=== PATIENT | female | born 2000 | race Caucasian/White ===

== ENCOUNTER → 2021-08-26 | Outpatient (CLI) | payer MEDICARE, OTHER ==
--- NOTE | 2021-08-26 18:27 | Diagnostic Imaging Report ---
INDICATION: , anatomic survey, routine care. TECHNIQUE: Multiple real-time grayscale images were obtained over the gravid uterus. COMPARISON: None. FINDINGS: The cervix measures about 4.6 cm in length. The placenta is posterior with no evidence of previa. The amniotic fluid index measures 11.3 cm, and the heart rate measures 158 BPM. Position is transverse with head to maternal left. The kidneys are seen. The cord insertion is seen. The bladder is seen. Two umbilical arteries are demonstrated consistent with a three-vessel cord. The stomach is seen. A four-chamber heart is seen. A cord insertion is seen. The lateral ventricles are seen. The cerebellum and cisterna magna are seen. The upper and lower spine are seen. The profile is seen. Biometrical measurements are as follows: Biparietal 5.62 cm, age 23 weeks 2 days. Head circumference 23.00 cm, age 25 weeks 1 days. Abdominal circumference 20.59 cm, age 25 weeks 2 days. Femur length 4.63 cm, age 25 weeks 3 days. Sonographic estimate age: 24 weeks 6 days. Sonographic estimated date of delivery: 12/10/2021. Estimated Weight: 773 gm (+/- 113 gm). LMP percentile: 79%. heart rate: 153 beats per minute. number: 1 of 1. IMPRESSION: 1. Single live intrauterine gestation measuring at 24 weeks and 6 days, which is within range of the clinical dates. 2. No abnormality is seen on anatomic survey. 3. Transverse presentation. Dictated by: Dictated on workstation # [id number]
== END ==
LOC: RAD 15:31
PROVIDERS: ATTEND Nurse Practitioner Women's Health
DX: Z34.02 Encounter for supervision of normal first pregnancy, second trimester (principal); Z3A.24 24 weeks gestation of pregnancy
CPT/HCPCS: 76805

== ENCOUNTER 2021-12-08 14:13 | Inpatient (IN) | payer MEDICARE, MEDICAID ==
[2021-12-08] VITALS (26 sets, daily range): BP systolic 95–144; BP diastolic 52–93
[~2021-12-08] VITALS: Ht 160 cm; Wt 77.5 kg
[2021-12-08] MEDS ORDERED: PREN1TAB19 PO (14:48)
[2021-12-08] MEDS ORDERED: CETI10CA PO (14:48)
[2021-12-08] MEDS ORDERED: LIDOCAINE/EPI 2% 1:200,00 (XYLOCAINE) 10 ML VIAL INJ PRN (15:00)
[2021-12-08 15:18] LABS: BILIRUBIN,URINE NEGATIVE (NEGATIVE); CLARITY,URINE CLEAR; COLOR,URINE YELLOW; GLUCOSE, URINE (UA) NEGATIVE (NEGATIVE); KETONES,URINE NEGATIVE (NEGATIVE); LEUKOCYTE ESTERASE ,URINE 1+ (NEGATIVE); NITRITE,URINE NEGATIVE (NEGATIVE); PROTEIN,URINE NEGATIVE (NEGATIVE)
--- NOTE | 2021-12-08 15:21 | History & Physical-OB ---
OB - Chief Complaint & HPI Date/Time Date of Admission: Date of Admission: Dec 08, 2021 at 2:13 pm Date seen by a Provider: Dec 08, 2021 Time Seen by a Provider: 13:30 Chief Complaint/History OB-Reason for Admission/Chief: Onset of Labor Hx : 3 Hx Para: 1 Expected Date of Delivery: Dec 14, 2021 Gestational Age in Weeks: 39 Gestational Age in Days: 1 Admission Nurse Assessment Rev: Yes History of Labs O pos GBS neg Allergies and Home Medications Allergies Coded Allergies: haloperidol (Verified Allergy, Severe, throat swelling, 12/08/21) lurasidone (Verified Allergy, Mild, lightheaded, 12/08/21) Patient Home Medication List Home Medication List Reviewed: Yes Cetirizine HCl (Zyrtec) 10 Mg Capsule, 10 MG PO DAILY, (Reported) Entered as Reported by: ALY AYON on 12/08/211447 Last Action: New Order Vit/Iron Fumarate/FA ( Vitamins Tablet) 28 Mg Iron-800 Mcg Tablet, 1 EACH PO DAILY, (Reported) Entered as Reported by: ALY AYON on 12/08/211447 Last Action: New Order OB - History Hx of Present Care: Yes (limited PNC due to travel inabilities at home,(no ride)) Obstetrical Complications: None Medical Complications: None Patient Past Medical History n/a OB - Admission Exam Physical Exam HEENT: NCAT Heart: Rhythm Normal Lungs: Clear Abdomen: Gravid Extremities: Normal Reflexes: Normal Cervical Dilatation: 4cm Effacement: 75% Station: -1 Membranes: Intact Heart Rate: 130's Accelerations: Accelerations Present Decelerations: No Decelerations Short Term Variability: Present Chemical Research Engineer Variability: Average (6-25) Contractions on Admission: 6-10 Minutes Apart Intensity: Moderate Labs Laboratory Tests Test 12/08/21 14:45 Range/Units OB - Assessment/Plan/Diagnosis Assessment Assessment: active labor Admission Dx 21 yo @ 39 weeks Advanced cervical dilatation GBS neg Admission Status: Inpatient Order (span 2 midnights) Reason for Inpatient Admission: Active labor at 39 weeks Plan Plan: Expectant Management (AROM) ALAN KIRBY DO Dec 08, 2021 3:21 pm
[2021-12-08 15:25] LABS: BACTERIA,URINE MODERATE /HPF; SQUAMOUS EPITHELIAL CELL,UR 0-2 /HPF; WBC,URINE 0-2 /HPF
[2021-12-08 15:31] LABS: AMPHETAMINE SCREEN, URINE NEGATIVE (NEGATIVE); BARBITURATE SCREEN URINE NEGATIVE (NEGATIVE); BENZODIAZEPINES SCREEN URINE NEGATIVE (NEGATIVE); CANNABINOID SCREEN, URINE NEGATIVE (NEGATIVE); COCAINE SCREEN URINE NEGATIVE (NEGATIVE); METHADONE STAT NEGATIVE (NEGATIVE); OPIATE SCREEN URINE NEGATIVE (NEGATIVE); OXYCODONE STAT NEGATIVE (NEGATIVE); PROPOXYPHENE STAT NEGATIVE (NEGATIVE); TRICYCLIC ANTIDEPRESSANTS SCRE NEGATIVE (NEGATIVE)
[2021-12-08 15:52] LABS: BASOPHILS # (AUTO) 0.1 10^3/uL (0.0-0.1); BASOPHILS % (AUTO) 1 % (0-10); EOSINOPHILS # (AUTO) 0.2 10^3/uL (0.0-0.3); EOSINOPHILS % (AUTO) 1 % (0-10); HEMATOCRIT 43 % (35-52); HEMOGLOBIN 14.6 g/dL (11.5-16.0); LYMPHOCYTES # (AUTO) 2.4 10^3/uL (1.0-4.0); LYMPHOCYTES % (AUTO) 16 % (12-44); MEAN CORPUSCULAR HEMOGLOBIN 30 pg (25-34); MEAN CORPUSCULAR HGB CONC 34 g/dL (32-36); MEAN CORPUSCULAR VOLUME 87 fL (80-99); MEAN PLATELET VOLUME 9.2 fL (9.0-12.2); MONOCYTES % (AUTO) 7 % (0-12); NEUTROPHILS % (AUTO) 74 % (42-75); PLATELET COUNT 280 10^3/uL (130-400); WHITE BLOOD COUNT 14.9 10^3/uL (4.3-11.0)
[2021-12-08] MEDS: D5 LR IV SOLUTION 1,000 ML IV SCH ×2 (16:04→22:39)
[2021-12-08 16:17] LABS: EOSINOPHILS % (MANUAL) 1 %; LYMPHOCYTES % (MANUAL) 11 %; MONOCYTES % (MANUAL) 15 %; NEUTROPHILS % (MANUAL) 73 %; RBC MORPH NORMAL
[2021-12-08] MEDS ORDERED: fentaNYL 2 mcg/ml BUPIVA 0.125 100 ML ONE (16:59)
[2021-12-08] MEDS ORDERED: BUPIVACAINE 0.25% 30 ML (SENSORCAINE) VIAL ONE (18:11)
[2021-12-08] MEDS ORDERED: BUPIVACAINE 0.5% 30 ML (SENSORCAINE) VIAL ONE (18:11)
[2021-12-08] MEDS ORDERED: fentaNYL INJ 100 MCG/2 ML AMP ONE (18:11)
[2021-12-08] MEDS ORDERED: LACTATED RINGERS 1,000 ML IV ONE ×2 (18:45)
[2021-12-08] MEDS ORDERED: ONDANSETRON 4 MG/2 ML (SDV) Z0FRAN IV PRN (18:45)
[2021-12-08] MEDS ORDERED: NALOXONE 0.4 MG/ML 1 ML (NARCAN) VIAL IV PRN (18:45)
[2021-12-08] MEDS ORDERED: fentaNYL INJ 100 MCG/2 ML AMP INJ ONE (18:45)
[2021-12-08] MEDS ORDERED: EPIDURAL (fentaNYL 2 MCG/ML BUPIVA 0.125%)100 ML BAG EPI PRN (18:45)
[2021-12-08] MEDS ORDERED: OXYTOCIN PRE-MIX DRIP 500 ML IV SCH (19:30)
[2021-12-08] MEDS ORDERED: OXYTOCIN PRE-MIX DRIP 500 ML IV ONE (19:33)
[2021-12-08] MEDS ORDERED: CALCIUM CARBONATE 500 MG (TUMS) TAB.CHEW ONE (20:39)
[2021-12-08] MEDS ORDERED: CALCIUM CARBONATE 500 MG (TUMS) TAB.CHEW PO ONE (20:45)
[2021-12-08] MEDS ORDERED: ACETAMINOPHEN 500 MG TAB (TYLENOL) PO ONE (23:15)
[2021-12-09] VITALS (18 sets, daily range): BP systolic 96–140; BP diastolic 50–94
--- NOTE | 2021-12-09 01:09 | OB Labor & Delivery Record ---
L&D History Date of Service Date of Service: Dec 09, 2021 History Expected Date of Delivery: Dec 14, 2021 Gestational Age in Weeks: 39 Hx : 3 Hx Para: 1 Complications Events: Routine care (limited PNC) Operative Indications (Cesarea: N/A-Vaginal Delivery Intrapartal Events: None L&D Stage1 Stage One Onset of Labor - Date: Dec 09, 2021 Monitors and Tracing Monitor Mode: External Heart Rate: 140 Monitor Accelerations: Uniform Monitor Decelerations: None Station: 0 Finishing Supervisor Plastic Sheets Variability: Average (6-10) Short Term Variability: Present Presentation: Vertex Vital Signs VS - Last 72 Hours, by Label 12/08/21 12/08/21 12/08/21 12/08/21 14:15 16:40 17:20 17:50 Temp 38.0 37.1 37.9 37.6 Pulse 111 111 91 Resp 20 18 18 B/P (MAP) 104/77 (86) 110/62 (78) Pulse Ox 97 99 97 O2 Delivery Room Air Room Air Room Air 12/08/21 12/08/21 12/08/21 12/08/21 18:15 18:21 18:24 18:25 Pulse 138 133 120 104 Resp 24 24 24 20 B/P (MAP) 144/93 (110) 144/93 (110) 137/65 (89) 137/65 (89) Pulse Ox 99 100 100 O2 Delivery Room Air 12/08/21 12/08/21 12/08/21 12/08/21 18:28 19:15 19:20 19:30 Temp 37.0 Pulse 87 79 72 Resp 20 18 18 B/P (MAP) 129/61 (83) 141/58 (85) 113/70 (84) Pulse Ox 100 98 100 O2 Delivery Room Air Room Air Room Air 12/08/21 12/08/21 12/08/21 12/08/21 20:15 20:26 20:41 20:57 Pulse 94 97 106 88 Resp 18 18 18 18 B/P (MAP) 119/67 (84) 131/78 (95) 110/62 (78) 112/71 (85) 12/08/21 12/08/21 12/08/21 12/08/21 21:11 21:26 21:43 21:57 Pulse 88 127 84 76 Resp 18 18 18 18 B/P (MAP) 107/65 (79) 97/52 (67) 104/55 (71) 106/52 (70) 12/08/21 12/08/21 12/08/21 22:12 22:27 22:41 Temp 36.9 Pulse 85 95 113 Resp 18 18 18 B/P (MAP) 110/58 (75) 101/56 (71) 117/64 (81) Rupture of Membranes Spontaneous Ruture of Membrane: No Amniotic Membrane Rupture Time: 1637 Amniotic Membrane Fluid Desc.: Clear Vaginal Bleeding Description: Normal Show Induction/Anesthesia Epidural Cath Placement - Time: 1824 Progress/Notes Patient presented to office in early labor 4 cm dilatation. Sent to hospital where AROM performed. Epidural placed at patient request and pitocin augmentation started. She progressed rapidly to complete and + 2 L&D Stage2 Stage Two Stage II Date: Dec 09, 2021 Monitors and Tracing Monitor Mode: External Heart Rate: 140 Monitor Accelerations: Uniform Monitor Decelerations: Variable Fdc Variability: Average (6-10) Short Term Variability: Present Position: Right Occiput Anterior Presentation: Vertex Cord Descript/Complications Cord Vessel Description: 3 Vessels Delivery Type Delivery Method: Spontaneous Vaginal Anterior Shoulder: Left Episiotomy/Perineal Laceration Laceraction(s)/Extensions: No Condition of Delivery 1 minute Comment: 8 5 minute Comment: 9 Notes Live female weight 8lbs even Condition of Condition of : Living Exam: No Observed Abnormalities Resuscitation Resuscitation: N/A - Spontaneous Resp L&D Stage3 Stage Three Stage III Date: Dec 09, 2021 Pictocin Pitocin Administration mu/min: 8 Pitocin ml/hr: 8 Pitocin Administration Comment: 30 mu wide open after delivery of placenta Placenta Delivery Placenta Delivery: Spontaneous Delivery Summary Summary Estimated blood loss (mL): 300 Attending at delivery: Alan Kirby DO Condition of Delivery Examined: Cervix Examined, Uterus Explored Post Hemorrhage: No Condition of Mother stable Condition of (s) stable ALAN KIRBY DO Dec 09, 2021 01:08
[2021-12-09] MEDS ORDERED: NALOXONE 0.4 MG/ML 1 ML (NARCAN) VIAL IV PRN (01:15)
[2021-12-09] MEDS ORDERED: WITCH HAZEL(TUCKS) 40 EA JAR TOP PRN (01:15)
[2021-12-09] MEDS ORDERED: TETANUS,DIPTH,PERTUSS P/F (BOOSTRIX) 0.5 ML VIAL IM ONE (01:15)
[2021-12-09] MEDS ORDERED: BENZOCAINE/MENTHOL (DERMOPLAST) 56 ML CAN TP PRN (01:15)
[2021-12-09] MEDS ORDERED: DIBUCAINE 1% OINTMENT 30 GM TUBE TOP PRN (01:15)
[2021-12-09] MEDS ORDERED: MEASLES,MUMPS,RUBELLA 1 EA INJ SQ ONE (01:15)
[2021-12-09] MEDS: OXYTOCIN PRE-MIX DRIP 500 ML IV SCH ×2 (01:29→19:38)
[2021-12-09] MEDS ORDERED: IBUPROFEN 600 MG (MOTRIN) TAB PO ONE (03:01)
[2021-12-09] MEDS ORDERED: IBUPROFEN 600 MG (MOTRIN) TAB PO SCH (06:00)
[2021-12-09] MEDS: IBUPROFEN 600 MG (MOTRIN) TAB PO SCH ×3 (08:18→20:55)
[2021-12-09] MEDS: FERROUS SULF 325 MG (IRON) TAB PO SCH (08:18)
[2021-12-09] MEDS: PRENATAL VITAMIN 1 EA TAB PO SCH (08:18)
[2021-12-09] MEDS: HYDROcodone/APAP 5 MG/325 MG (LORTAB) TAB PO PRN ×3 (08:19→18:42)
[2021-12-09] MEDS: DOCUSATE SODIUM 100 MG (COLACE) CAP PO SCH ×2 (08:19→20:55)
--- NOTE | 2021-12-09 09:06 | Discharge Inst-Women's Service ---
Discharge Inst-Women's Serv Depart Medication/Instructions New, Converted or Re-Newed RX: Transmitted to Pharmacy Final Diagnosis PPD 1 NVD Problems Reviewed?: Yes Consults/Follow Up Additional Follow Up: Yes Orders/Referrals Dr. Kirby in 6 weeks Activity Activity: Activity as Tolerated Driving Instructions: No Driving for 1 Week NO SMOKING: NO SMOKING Nothing Inside Vagina: No Douching, No [place], No Tampons Diet Discharge Diet: No Restrictions Symptoms to Report to : Bleeding Excessive, Pain Increased, Fever Over 101 Degrees F, Vaginal Bleeding Increase, Questions/Concerns For Any Problems or Questions: Contact Your Physician ALAN KIRBY DO Dec 09, 2021 09:06
[2021-12-09] MEDS ORDERED: DOCU100C37 PO (09:09)
[2021-12-09] MEDS ORDERED: ACHD5005 PO (09:09)
[2021-12-09] MEDS ORDERED: FERR325T24 PO (09:09)
[2021-12-09] MEDS ORDERED: IBUP-844 PO (09:09)
--- NOTE | 2021-12-09 09:38 | Anesthesia-Regional Post-Op ---
Regional Patient Condition Mental Status: Alert, Oriented x3 Circulation: Same as Pre-Op Headache: Absent Sensation: Full Recovery Motor Block: Absent Post Op Complications Complications None Follow Up Care/Instructions Patient Instructions None needed. Anesthesia/Patient Condition Patient is doing well, no complaints, stable vital signs, no apparent adverse anesthesia problems. No complications reported per nursing. FELIX GARCIA CRNA Dec 09, 2021 09:38
[2021-12-09] MEDS: CATHETER FLUSH 10 ML SYR IV SCH ×5 (19:37→19:40)
[2021-12-09] MEDS: D5 LR IV SOLUTION 1,000 ML IV SCH ×2 (19:37→19:40)
[2021-12-10 00:45] VITALS: BP 95/55
[2021-12-10] MEDS: HYDROcodone/APAP 5 MG/325 MG (LORTAB) TAB PO PRN ×2 (00:46→10:49)
[2021-12-10 03:48] VITALS: BP 92/52
[2021-12-10] MEDS: IBUPROFEN 600 MG (MOTRIN) TAB PO SCH ×2 (03:48→09:32)
[2021-12-10 06:26] LABS: BASOPHILS # (AUTO) 0.1 10^3/uL (0.0-0.1); BASOPHILS % (AUTO) 1 % (0-10); EOSINOPHILS # (AUTO) 0.4 10^3/uL (0.0-0.3); EOSINOPHILS % (AUTO) 3 % (0-10); HEMATOCRIT 34 % (35-52); HEMOGLOBIN 11.3 g/dL (11.5-16.0); LYMPHOCYTES # (AUTO) 3.4 10^3/uL (1.0-4.0); LYMPHOCYTES % (AUTO) 23 % (12-44); MEAN CORPUSCULAR HEMOGLOBIN 30 pg (25-34); MEAN CORPUSCULAR HGB CONC 33 g/dL (32-36); MEAN CORPUSCULAR VOLUME 89 fL (80-99); MEAN PLATELET VOLUME 9.4 fL (9.0-12.2); MONOCYTES # (AUTO) 1.2 10^3/uL (0.0-1.0); MONOCYTES % (AUTO) 8 % (0-12); NEUTROPHILS # (AUTO) 9.7 10^3/uL (1.8-7.8); NEUTROPHILS % (AUTO) 65 % (42-75); PLATELET COUNT 234 10^3/uL (130-400)
[2021-12-10] MEDS: CATHETER FLUSH 10 ML SYR IV SCH ×2 (07:00)
[2021-12-10] MEDS: D5 LR IV SOLUTION 1,000 ML IV SCH (07:00)
[2021-12-10] MEDS ORDERED: SERT50TA2 PO (08:45)
[2021-12-10] MEDS ORDERED: SERTRALINE 50 MG (ZOLOFT) TABLET PO ONE (08:45)
--- NOTE | 2021-12-10 08:45 | Postpartum Progress Note ---
Note Note Day # 1 Subjective: Patient is without complaints. Ambulating, voiding. Tolerating a regular diet without nausea or vomiting. Normal lochia. Pain is well controlled with oral pain medications. Objective: Physical Exam: General - Alert and oriented, no apparent distress Abdomen - Soft, appropriately tender to palpation, non-distended, fundus firm at umbilicus Extremities - no edema, negative Merari's bilaterally Assessment: PPD 1 NVD Acute blood loss anemia PP Depression Plan: Routine care. Encourage breast feeding. Encourage ambulation. Start on Zoloft Ferrous sulfate supplementation. Plan for discharge today Vitals - Labs Vital Signs - I&O Vital Signs Date Time Temp Pulse Resp B/P (MAP) Pulse Ox O2 Delivery O2 Flow Rate FiO2 12/10/21 03:48 37.0 76 18 92/52 (65) 96 Room Air 12/10/21 00:45 36.8 81 18 95/55 (68) 97 Room Air 12/09/21 20:55 36.0 80 18 100/53 (69) 98 Room Air 12/09/21 15:33 36.0 79 18 118/57 (77) 97 Room Air 12/09/21 12:45 36.2 78 18 102/69 (80) 98 Room Air I & O 12/10/21 07:00 Intake Total 2500 ml Balance 2500 ml Labs Laboratory Tests 12/10/21 06:07: White Blood Count 15.0H, Red Blood Count 3.78L, Hemoglobin 11.3#L, Hematocrit 34L, Mean Corpuscular Volume 89, Mean Corpuscular Hemoglobin 30, Mean Corpuscular Hemoglobin Concent 33, Red Cell Distribution Width 14.3, Platelet Count 234, Mean Platelet Volume 9.4, Immature Granulocyte % (Auto) 1, Daniel trophils (%) (Auto) 65, Lymphocytes (%) (Auto) 23, Monocytes (%) (Auto) 8, Eosinophils (%) (Auto) 3, Basophils (%) (Auto) 1, Neutrophils # (Auto) 9.7H, Lymphocytes # (Auto) 3.4, Monocytes # (Auto) 1.2H, Eosinophils # (Auto) 0.4H, Basophils # (Auto) 0.1, Immature Granulocyte # (Auto) 0.2H Microbiology 12/08/21 Urine Culture - Final, Complete NO GROWTH ALAN KIRBY DO Dec 10, 2021 08:44
[2021-12-10] MEDS: PRENATAL VITAMIN 1 EA TAB PO SCH (09:32)
[2021-12-10] MEDS: DOCUSATE SODIUM 100 MG (COLACE) CAP PO SCH (09:32)
[2021-12-10] MEDS: FERROUS SULF 325 MG (IRON) TAB PO SCH (09:32)
[2021-12-10 09:40] VITALS: BP 114/68
[2021-12-10] MEDS ORDERED: TETANUS,DIPTH,PERTUSS P/F (BOOSTRIX) 0.5 ML VIAL IM ONE (09:52)
== END 2021-12-10 12:05 | disposition home or self-care (01) | DRG 806 ==
LOC: LDRP 14:13
PROVIDERS: ADMIT Obstetrics & Gynecology; ATTEND Obstetrics & Gynecology
PROC: 10E0XZZ Delivery of Products of Conception, External Approach (ICD-10-PCS; principal; 2021-12-09)
DX: O90.81 Anemia of the puerperium (principal); D62 Acute posthemorrhagic anemia; Z37.0 Single live birth; O99.345 Other mental disorders complicating the puerperium; F53.0 Postpartum depression; Z3A.39 39 weeks gestation of pregnancy; Z88.8 Allergy status to other drugs, medicaments and biological substances; Z23 Encounter for immunization; Z28.310 Unvaccinated for COVID-19
CPT/HCPCS: 36415; 80306; 81000; 85007; 85025; 85027; 86850; 86900; 86901; 87088; 90715